=== PATIENT | female | born 1950 | race Caucasian/White ===

== ENCOUNTER 2021-04-23 16:26 | Inpatient (IN) | payer MEDICARE ==
[~2021-04-23] VITALS: Ht 165.1 cm; Wt 76.4 kg
[~2021-04-23 16:26] MED LIST: CLEOCIN300 MG PO; TRIAMCINOLONE A80 G1 TOP
[2021-04-23 17:57] LABS: BASOPHIL 0.1 % (0-2); EOSINOPHIL 0.1 % (0-7); HCT 33.1 % (37.0-47.0); HGB 10.7 g/dl (12.5-16.0); MCH 30.5 pg (25.0-31.0); MCHC 32.3 g/dL (32.0-36.0); MCV 94.3 fL (78.0-100.0); MONOCYTE 12.6 % (0-12); MPV 9.9 fL (6.0-9.5); NEUTROPHIL 75.3 % (41-80); NRBC 0; PLT 531 K/uL (150-400); RBC 3.51 M/uL (4.20-5.40); RDW 13.2 % (11.5-14.0); WBC 15.2 K/uL (4.0-10.5)
[2021-04-23 18:20] LABS: ALBUMIN 2.1 g/dL (3.4-5.0); BILIRUBIN - TOTAL 0.3 mg/dL (0.2-1.0); BUN/CREAT RATIO (CALC) 21.9 RATIO; CREATININE 0.64 mg/dL (0.51-0.95); GLOBULIN (CALCULATION) 6.1 g/dL; POTASSIUM 3.8 mmol/L (3.5-5.1); TOTAL PROTEIN 8.2 g/dL (6.4-8.2)
[2021-04-23 18:28] LABS: LACTIC ACID 1.1 mmol/L (0.4-1.9)
[2021-04-23 19:21] LABS: INR 1.23 (0.9-1.2); PROTHROMBIN TIME 14.7 SECONDS (11.4-13.6)
[2021-04-23 23:51] LABS: BILIRUBIN 1+ mg/dL (NEGATIVE); BLOOD 1+ Ery/uL (NEGATIVE); CLARITY CLEAR (CLEAR); COLOR YELLOW (YELLOW); GLUCOSE (U) NORMAL (NORMAL); LEUKOCYTES TRACE Leu/uL (NEGATIVE); NITRITE NEGATIVE (NEGATIVE); PROTEIN 1+ mg/dL (NEGATIVE); SPECIFIC GRAVITY 1.025 (1.001-1.030); UROBILINOGEN 0.2 mg/dL (0.2-1.0); pH 6.5 (5.0-9.0)
[2021-04-24] LABS: URINARY RBC RARE
[2021-04-24 00:01] LABS: BACTERIA 1+; YEAST PRESENT
[2021-04-24 05:55] LABS: BASOPHIL 0.2 % (0-2); EOSINOPHIL 0 % (0-7); HGB 9.9 g/dl (12.5-16.0); LYMPHOCYTE 6.2 % (15-48); MCH 30.5 pg (25.0-31.0); MCHC 31.9 g/dL (32.0-36.0); MCV 95.4 fL (78.0-100.0); MONOCYTE 3.8 % (0-12); MPV 10.1 fL (6.0-9.5); NEUTROPHIL 88.5 % (41-80); NRBC 0; PLT 481 K/uL (150-400); RBC 3.25 M/uL (4.20-5.40); RDW 13.1 % (11.5-14.0); WBC 12.8 K/uL (4.0-10.5)
[2021-04-24 06:11] LABS: BUN/CREAT RATIO (CALC) 30.6 RATIO; CREATININE 0.49 mg/dL (0.51-0.95)
[2021-04-24] MEDS ORDERED: FLUOXETINE HCL40 MG PO ×2 (10:17→10:18)
[2021-04-24] MEDS ORDERED: LASIX40 MG PO (10:18)
[2021-04-24] MEDS ORDERED: LIPITOR20 MG PO (10:19)
[2021-04-25 06:14] LABS: BASOPHIL 0.1 % (0-2); EOSINOPHIL 0 % (0-7); HCT 28.4 % (37.0-47.0); HGB 9.1 g/dl (12.5-16.0); LYMPHOCYTE 5.6 % (15-48); MCH 30.5 pg (25.0-31.0); MCV 95.3 fL (78.0-100.0); MONOCYTE 9.1 % (0-12); NRBC 0; PLT 489 K/uL (150-400); RBC 2.98 M/uL (4.20-5.40); RDW 13.2 % (11.5-14.0); WBC 17.8 K/uL (4.0-10.5)
[2021-04-25 06:31] LABS: INR 1.12 (0.9-1.2); PROTHROMBIN TIME 13.7 SECONDS (11.4-13.6)
[2021-04-25 06:38] LABS: ALBUMIN 1.7 g/dL (3.4-5.0); BILIRUBIN - TOTAL 0.1 mg/dL (0.2-1.0); BUN/CREAT RATIO (CALC) 28.3 RATIO; CREATININE 0.53 mg/dL (0.51-0.95); POTASSIUM 3.7 mmol/L (3.5-5.1); TOTAL PROTEIN 6.7 g/dL (6.4-8.2)
--- NOTE | 2021-04-25 12:57 | NUR ---
04/25/21 Ms. Levi lives at home with her s.o. She was independent in the home and community prior to admission. Patient is currently using 02. Please advise if needed at discharge.
[2021-04-25 15:22] LABS: RETICULOCYTE COUNT 1.8 % (1.0-2.0)
[2021-04-25 15:34] LABS: IRON % SATURATION 10.3 %SAT (20-50)
[2021-04-25 16:14] LABS: FOLIC ACID (SERUM) 4.1 ng/mL (8.6-58.9)
--- NOTE | 2021-04-26 03:36 | NUR ---
PATIENT FEELING MORE SOA THIS AM. SAT 88% ON 4L PATIENT HAD ABG AT BEGINNING OF SHIFT. PATIENT HAVING THORACENTESIS THIS AM PATIENT PLACED ON 50% VM SAT 92%. NOTIFIED FIFI MÉNDEZ/JASWANT QUINTANILLA
[2021-04-26 05:52] LABS: BASOPHIL 0.2 % (0-2); EOSINOPHIL 0.3 % (0-7); HCT 30.5 % (37.0-47.0); HGB 9.6 g/dl (12.5-16.0); LYMPHOCYTE 6.9 % (15-48); MCH 30.2 pg (25.0-31.0); MCHC 31.5 g/dL (32.0-36.0); MCV 95.9 fL (78.0-100.0); MONOCYTE 9.1 % (0-12); MPV 9.9 fL (6.0-9.5); NEUTROPHIL 82.1 % (41-80); PLT 511 K/uL (150-400); RBC 3.18 M/uL (4.20-5.40); RDW 13.7 % (11.5-14.0); WBC 16.8 K/uL (4.0-10.5)
[2021-04-26 06:24] LABS: ALBUMIN 1.7 g/dL (3.4-5.0); BILIRUBIN - TOTAL 0.2 mg/dL (0.2-1.0); BUN/CREAT RATIO (CALC) 28.6 RATIO; CREATININE 0.49 mg/dL (0.51-0.95); GLOBULIN (CALCULATION) 5.2 g/dL; MAGNESIUM 1.9 mg/dL (1.8-2.4); POTASSIUM 3.7 mmol/L (3.5-5.1); TOTAL PROTEIN 6.9 g/dL (6.4-8.2)
[2021-04-26 07:02] LABS: LYMPHOCYTE(M) 3 % (15-48); MONOCYTE(M) 4 % (0-12); NEUTROPHILS(M) 93 % (41-80); TOTAL CELL COUNT 100
[2021-04-26 07:03] LABS: NRBC 0; PLATELET ESTIMATE INCREASED; PLATELET MORPHOLOGY NORMAL
--- NOTE | 2021-04-26 09:51 | NUR ---
0812 CALLED THE XRAY DEPARTMENT CHECKING ON A TIME FOR THE PROCEDURE TODAY. REPORTS CAN'T GIVE A TIME BUT IT WILL BE THIS MORNING. 0814 CHARLENE [facility] [employer] WAS NOTIFED THAT THE PATIENT WAS NOT HAPPY ABOUT THE WAIT FOR THE PROCDURE. SHE ARRIVE TO EXPLAIN THAT SHE WOULD GO DOWN TO CHECK AND TRY TO GET A TIME FOR THEM TO PICK HER UP. 0830 REPORTED ALL THIS BACK TO MRS. ASHLEY AND THIS SEEMED TO HELP HER CALM DOWN. 0955 [facility] CALLED BACK THEY ARE ON THE WAY TO PICK HER UP TO DO HER PROCDURE.
[2021-04-26 11:55] LABS: CLARITY (FLUID) TURBID; COLOR (FLUID) GRAY; WBC (FLUID) 844100 WBC/uL
[2021-04-26 11:56] LABS: RBC (FLUID) 500000 RBC/uL
--- NOTE | 2021-04-26 12:38 | NUR ---
1030 TRANSPORTED DOWN TO THE XRAY DEPARTMENT VIA W/C FOR PROCEDURE. CONDITION WAS STABLE AT THE TIME OF TRANSFER. 1145 RETURN BACK TO THE ROOM VIA W/C WITH STAFF AFTER THE PROCEDURE. REPORTS THAT SHE CAN BREATH MUCH BETTER, OR STATS ALSO HAVE IMPROVED. WILL CONTINUE TO MONITOR FOR CHANGES.
--- NOTE | 2021-04-26 13:09 | NUR ---
PT. MAY REQUIRE HOME O2 UPON DISCHARGE. PLEASE COMPLETE WALK TEST FOR THE HOME O2.
--- NOTE | 2021-04-26 21:34 | NUR ---
2039 REPORT CALLED TO EMANUEL ON 4M3 AT [facility].
--- NOTE | 2021-04-26 21:36 | NUR ---
2049 [facility] CALLED AND NOTIFIED OF NEED FOR PT TRANSPORT TO [facility].
--- NOTE | 2021-04-26 22:12 | NUR ---
2145 DRSG FROM THORACENTESIS SITE [facility].
--- NOTE | 2021-04-26 22:43 | NUR ---
2243 PT DISCHARGED VIA [facility] TO [facility]. PT LEFT IN STABLE CONDITION. ALL BELONGINGS SENT WITH PT.
== END 2021-04-26 22:45 | disposition other institution (70) | DRG 871 ==
LOC: FER 16:26 → FMS 20:05 → FER 20:50 → FMS 04-26 22:45
PROVIDERS: Internal Medicine; Nurse Practitioner; Nurse Practitioner Family; ADMIT Internal Medicine
PROC: 0W993ZZ Drainage of Right Pleural Cavity, Percutaneous Approach (ICD-10-PCS; principal; 2021-04-26)
DX: A41.9 Sepsis, unspecified organism (principal); J18.9 Pneumonia, unspecified organism; J96.01 Acute respiratory failure with hypoxia; J86.9 Pyothorax without fistula; J90 Pleural effusion, not elsewhere classified; J98.11 Atelectasis; Z20.822 Contact with and (suspected) exposure to COVID-19; F41.9 Anxiety disorder, unspecified; F32.9 Major depressive disorder, single episode, unspecified; E78.5 Hyperlipidemia, unspecified; Z96.652 Presence of left artificial knee joint; Z87.01 Personal history of pneumonia (recurrent); Z90.49 Acquired absence of other specified parts of digestive tract
CPT/HCPCS: 36415; 36600; 71045; 71046; 71250; 80048; 80053; 81001; 82607; 82746; 82803; 82945; 83036; 83540; 83550; 83605; 83615; 83735; 83880; 84145; 84157; 85025; 85610; 85730; 87040; 87070; 87075; 87205; 89051; 94010; 94640; 94667; 94668; 97161; 97166; 97530-GP; 97535; J0456; J0696; J1650; J1956; J2185; J2930; J3370; J7030; J7050